=== PATIENT | female | born 1945 | race Caucasian/White ===

== ENCOUNTER 2018-04-03 09:23 | Day surgery (SDC) | payer MEDICARE, MEDICAID ==
[~2018-04-03] VITALS: Ht 162.6 cm; Wt 61.2 kg
[~2018-04-03 09:23] MED LIST: LISI-604 PO; MULT-1203 PO; OMEG100020 PO
[2018-04-03] MEDS ORDERED: BALANCED SALT IRRIG SOLN COMB1 500ML OP ONE (11:45)
[2018-04-03] MEDS ORDERED: TROPICAMIDE 1% OPHTH DROPS 15ML RIGHTEYE SCH (12:00)
[2018-04-03] MEDS ORDERED: CYCLOPENTOLATE HCL 1% OPHTH DROPS 2ML RIGHTEYE SCH (12:00)
[2018-04-03] MEDS ORDERED: PHENYLEPHRINE HCL 10% OPHTH DROPS 5ML RIGHTEYE SCH (12:00)
[2018-04-03] MEDS ORDERED: LACTATED RINGERS 1,000 ML IV SCH (12:30)
[2018-04-03 12:35] LABS: BASOPHILS % 0.6 % (0.0-2.0); EOSINOPHILS % 1.4 % (0.0-5.0); HEMATOCRIT. 39.5 % (36.0-48.0); HEMOGLOBIN. 13.6 g/dL (12.0-16.0); LYMPHOCYTES % 26.4 % (20.0-50.0); MEAN CORPUSCULAR HEMOGLOBIN 32.7 pg (28.0-32.0); MEAN CORPUSCULAR VOLUME 95.1 fL (81.0-99.0); MEAN PLATELET VOLUME 7.5 fl (7.4-10.4); MONOCYTES % 6.6 % (2.0-8.0); PLATELET 238 x1000/uL (130-400); RED BLOOD CELL COUNT 4.16 mill/uL (4.2-5.4); RED CELL DISTRIBUTION WIDTH 12.3 % (11.6-14.6)
[2018-04-03 12:41] LABS: CHLORIDE 106 mEq/L (98-107)
[2018-04-03] MEDS ORDERED: SODIUM CHLORIDE 0.9% 1,000 ML IV ONE (13:27)
[2018-04-03] MEDS ORDERED: HYDROMORPHONE HCL/PF 2MG/ML CPJ IV PRN (13:30)
[2018-04-03] MEDS ORDERED: ONDANSETRON HCL 4MG/2ML INJ IV PRN (13:30)
[2018-04-03] MEDS ORDERED: IBUPROFEN 600MG TABLET PO ONE (13:30)
[2018-04-03] MEDS ORDERED: PROPOFOL 200MG/20ML VIAL IV ONE (13:40)
[2018-04-03] MEDS ORDERED: MIDAZOLAM HCL 2 MG/2 ML VIAL ONE (13:40)
[2018-04-03] MEDS ORDERED: LIDOCAINE HCL 1% 20ML VIAL (Pyxis) INJ ONE (13:40)
[2018-04-03] MEDS ORDERED: HYALURONATE SODIUM 14 MG/ML 0.85ML SYRINGE IO ONE ×2 (14:09→14:32)
[2018-04-03] MEDS ORDERED: NEO/POLYMYX B SULF/DEXAMETH OPHTH OINT 3.5GM ONE (14:31)
[2018-04-03] MEDS ORDERED: LIDOCAINE HCL/PF 2% 20 MG/ML 10ML VIAL ONE (14:31)
[2018-04-03] MEDS ORDERED: PHENYLEPHRINE HCL 10% OPHTH DROPS 5ML ONE (14:31)
[2018-04-03] MEDS ORDERED: TETRACAINE 0.5% OPHTH DROPS 4ML ONE (14:31)
[2018-04-03] MEDS ORDERED: CYCLOPENTOLATE HCL 1% OPHTH DROPS 2ML ONE (14:31)
[2018-04-03] MEDS ORDERED: GENTAMICIN SULF 40MG/ML 2ML VIAL ONE (14:31)
[2018-04-03] MEDS ORDERED: PREDNISOLONE ACETATE 1% OPHTH DROPS 1ML ONE (14:31)
[2018-04-03] MEDS ORDERED: BALANCED SALT IRRIG SOLN 15ML ONE (14:31)
[2018-04-03] MEDS ORDERED: BUPIVACAINE HCL/PF 0.75% (7.5MG/ML) 10ML ONE (14:31)
[2018-04-03] MEDS ORDERED: TROPICAMIDE 1% OPHTH DROPS 15ML ONE (14:31)
[2018-04-03] MEDS ORDERED: CIPROFLOXACIN 0.3% OPHTH SOLN 2.5ML ONE (14:31)
== END 2018-04-03 15:54 | disposition home or self-care (01) ==
LOC: OR 09:23
PROVIDERS: ATTEND Ophthalmology
DX: H25.011 Cortical age-related cataract, right eye (principal); H57.03 Miosis; I10 Essential (primary) hypertension; M17.11 Unilateral primary osteoarthritis, right knee; E66.3 Overweight; Z79.899 Other long term (current) drug therapy; Z98.890 Other specified postprocedural states
CPT/HCPCS: 36415; 66982; 80048; 85025; 93005; J1580; J2250; J3490; V2632; J2704